=== PATIENT | male | born 1950 | race Caucasian/White ===

== ENCOUNTER → 2017-07-23 12:42 | Outpatient (CLI) | payer OTHER ==
--- NOTE | ~2017-07-23 | EC ---
PATIENT:MAYKEL MILLAN DATE OF SERVICE: 07/23/17 SEX: M MEDICAL RECORD: [id number] DATE OF : 48 LOCATION:[facility] AGE OF PATIENT: 67 ADMISSION DATE: 07/23/17 REFERRING PHYSICIAN: INTERPRETING PHYSICIAN: ZONIA MOSCOSO MD ECHOCARDIOGRAM REPORT ECHO CHARGES 4 ECHO COMPLETE Date: 07/23 CLINICAL DIAGNOSIS: CAD ECHOCARDIOGRAPHIC MEASUREMENTS (adult normal given) AC root (d.<3.7cm) 3.2 cm LV Septum d (<1.2 cm> 1.0 cm Valve Excursion 1.2 cm LV Septum (systole) 1.5 cm Left Atria (s.<4.0cm> 3.3 cm LVPW d(<1.2cm) 1.1 cm RV (d.<2.3cm) 3.0 cm LVPW (sytole) 1.7 cm LV diastole(<5.6CM) 5.5 cm MV E-F(>70mm/sec) cm LV systole 3.3 cm LVOT Diameter 1.7 cm MV exc.(>10mm) cm Est.ejection fraction (50-75%) % DOPPLER: LVIT cm/sec A 67.0 cm/sec E 60.0 cm/sec LA cm/sec RVSP 19.0 mmHg LVOT 96.0 cm/sec AOP1/2T m/s Asc. Ao 169 cm/sec RVOT 52.0 cm/sec RA cm/sec PA 86.0 cm/sec AV Gradient Peak 12.0 mmHg AV Mean 6.3 mmHg AV Area 1.5 cm MV Gradient Peak 2.8 mmHg MV Mean 1.2 mmHg MV Area cm COMMENTS: Patient Portal Concierge: Janice ANDERSONOE Tub Tender: 1 Dr. Moscoso TAPE# PACS Pericardial Effusion N DATE OF SERVICE: 07/23/2017 Echocardiogram FINDINGS: 1. Left ventricular chamber size is within normal limits. Left ventricular systolic function is mildly depressed. Overall ejection fraction 35% to 40%. There is global hypokinesis throughout all segments with no discrete wall motion abnormalities present. 2. Left atrium, right atrium, and right ventricle chamber sizes are within ECHOCARDIOGRAM REPORT [id number] MAYKEL MILLAN normal limits. 3. Valvular structures have normal structure and motion. 4. Doppler interrogation reveals no significant valvular insufficiency or stenosis. 5. No evidence of pericardial effusion or left ventricular thrombus. TRANSINT:[id number] Voice Confirmation ID: [id number] DOCUMENT ID: [id number] ZONIA MOSCOSO MD at 1710 CC: [id number] DICTATION DATE: 07/24/17 0954 SKEIN YARN DYER: 07/24/17 1105 DEP CLI 07/23/17 [facility] [address] [id number]
== END | disposition home or self-care (01) ==
LOC: D.ECHO 12:42
DX: I25.10 Atherosclerotic heart disease of native coronary artery without angina pectoris (principal)

== ENCOUNTER → 2017-10-23 12:16 | Outpatient (CLI) | payer MEDICARE | END | disposition home or self-care (01) | LOC: D.RT 12:16 | DX: J44.9 Chronic obstructive pulmonary disease, unspecified (principal) ==